=== PATIENT | male | born 1970 | race African-American/Black ===

== ENCOUNTER 2021-08-31 16:42 | Emergency (ER) | payer OTHER ==
[~2021-08-31] VITALS: Ht 188 cm; Wt 125.0 kg
[2021-08-31] MEDS ORDERED: SODIUM CHLORIDE 0.9% 1,000 ML IV ONE (18:00)
[2021-08-31] MEDS ORDERED: ONDANSETRON HCL 4MG/2ML INJ IV STA (18:58)
[2021-08-31] MEDS ORDERED: MORPHINE SULFATE 4 MG/ML CPJ (NOT FOR IM USE) IV STA (18:58)
[2021-08-31] MEDS ORDERED: VANCOMYCIN 1G PREMIX 200 ML IV ONE (19:00)
[2021-08-31] MEDS ORDERED: PIPERACILLIN/TAZ 3.375G PREMIX 50 ML IV ONE (19:00)
[2021-08-31] MEDS ORDERED: SODIUM CHLORIDE 0.9% 1000ML BAG (SEPSIS BOLUS) IV ONE (19:15)
[2021-08-31] MEDS ORDERED: VANCOMYCIN 1GM PMX (XELLIA) 200 ML IV NR (19:15)
[2021-08-31 20:20] LABS: BASOPHILS % 0.5 % (0.0-2.0); EOSINOPHILS % 0.7 % (0.0-5.0); HEMATOCRIT. 27.5 % (42.0-52.0); LYMPHOCYTES % 21.8 % (20.0-50.0); MEAN CORPUSCULAR HEMOGLOBIN 25.3 pg (28.0-32.0); MEAN CORPUSCULAR VOLUME 77.4 fL (80.0-94.0); MEAN PLATELET VOLUME 7.6 fl (7.4-10.4); MONOCYTES % 12.8 % (2.0-8.0); NEUTROPHILS % 64.2 % (40.0-76.0); PLATELET 285 x1000/uL (130-400); RED BLOOD CELL COUNT 3.55 mill/uL (4.7-6.1)
[2021-08-31 20:26] LABS: CHLORIDE 99 mEq/L (98-107)
[2021-08-31 20:32] LABS: INR 1.1; PARTIAL THROMBOPLASTIN TIME 29.8 sec (23.4-31.0); PROTHROMBIN TIME 11.8 sec (9.6-11.0)
[2021-08-31] MEDS ORDERED: ENOXAPARIN 150MG/ML SYR SUBCUT ONE (21:30)
[2021-08-31 22:35] VITALS: BP 145/86
== END 2021-08-31 23:59 | disposition short-term general hospital (02) ==
LOC: ER 16:42
DX: A41.9 Sepsis, unspecified organism (principal); C4A.61 Merkel cell carcinoma of right upper limb, including shoulder; I82.A11 Acute embolism and thrombosis of right axillary vein; L02.413 Cutaneous abscess of right upper limb; Z20.822 Contact with and (suspected) exposure to COVID-19
CPT/HCPCS: 36415; 71045; 73070; 80053; 83605; 83880; 84484; 85025; 85610; 85730; 86140; 87040; 87426; 93005; 93971; 96361; 96365; 96366; 96372; 96375; 99291; J1650; J2270; J2405; J2543; J3370; J7030

== ENCOUNTER 2022-03-06 02:18 | Emergency (ER) | payer OTHER ==
[~2022-03-06] VITALS: Ht 170.2 cm; Wt 113.0 kg
[2022-03-06] MEDS ORDERED: PIPERACILLIN/TAZOBACTAM 3.375GM/50ML PREMIX IV ONE (05:00)
[2022-03-06] MEDS ORDERED: SODIUM CHLORIDE 0.9% 1,000 ML IV ONE (05:00)
[2022-03-06] MEDS ORDERED: VANCOMYCIN 1G PREMIX 200 ML IV SCH (05:00)
[2022-03-06] MEDS ORDERED: PIPERACILLIN/TAZ 3.375G PREMIX 50 ML IV NR (05:00)
[2022-03-06 06:44] LABS: CHLORIDE 107 mEq/L (98-107)
[2022-03-06 07:02] LABS: BASOPHILS % 0.3 % (0.0-2.0); EOSINOPHILS % 0.4 % (0.0-5.0); HEMATOCRIT. 24.7 % (42.0-52.0); HEMOGLOBIN. 7.8 g/dL (14.0-18.0); LYMPHOCYTES % 15.3 % (20.0-50.0); MEAN CORPUSCULAR HEMOGLOBIN 27.2 pg (28.0-32.0); MEAN CORPUSCULAR VOLUME 86.3 fL (80.0-94.0); MONOCYTES % 11.9 % (2.0-8.0); NEUTROPHILS % 72.1 % (40.0-76.0); PLATELET 128 x1000/uL (130-400); RED BLOOD CELL COUNT 2.87 mill/uL (4.7-6.1); RED CELL DISTRIBUTION WIDTH 17.8 % (11.6-14.6)
[2022-03-06 09:31] VITALS: BP 124/77
== END 2022-03-06 10:32 | disposition short-term general hospital (02) ==
LOC: ER 02:18
DX: R00.0 Tachycardia, unspecified (principal); D62 Acute posthemorrhagic anemia; Z85.821 Personal history of Merkel cell carcinoma
CPT/HCPCS: 36415; 71045; 80053; 83605; 84145; 85025; 86850; 86900; 86901; 87040; 96365; 96367; 99291; J2543; J3370; J7030; Z7610

== ENCOUNTER 2022-03-11 00:48 | Emergency (ER) | payer OTHER ==
[~2022-03-11] VITALS: Ht 180.3 cm; Wt 81.0 kg
[2022-03-11] MEDS ORDERED: TRANEXAMIC ACID 1,000 MG/10 ML IV ONE (01:30)
[2022-03-11 02:00] VITALS: BP 119/69
== END 2022-03-11 04:24 | disposition home or self-care (01) ==
LOC: ER 00:48
DX: S40.811A Abrasion of right upper arm, initial encounter (principal); X58.XXXA Exposure to other specified factors, initial encounter; Y93.89 Activity, other specified; Y92.89 Other specified places as the place of occurrence of the external cause; Y99.8 Other external cause status; Z85.9 Personal history of malignant neoplasm, unspecified
CPT/HCPCS: 96374; 99283; Z7610